=== PATIENT | female | born 1955 | race Two or more races ===

== ENCOUNTER 2021-11-17 09:00 | Outpatient (REF) | payer OTHER, SELFPAY ==
--- NOTE | 2021-11-17 08:15 | PAPFT_PTH ---
PATIENT: Nini Winslow LOC: [facility]#:[id number] AGE/SX: 66/F ROOM: RE11/17/[address]: Mildred López : 1955 BED: DIS: 11/17/2021 SPEC #: [id number] RECD: 11/17/21 15:52 STATUS: JOI LOPEZ #: [id number] MARTHA: 11/17/21 08:[address]: Mildred López DEPT: [facility] Cytology RECD BY: Lexi Koenig Tissues: 1 - CX/ENDOCX FOR PAP SMEARS Procedures: PAP THIN PREP/[facility] Screening HPV DNA PROBE Comments: [id number]
[2021-11-17 16:00] LABS: Anion Gap 8.6 mmol/L (3-11); BUN 14 mg/dL (7-18); CO2 27.4 mmol/L (21.0-32.0); CREATININE 0.7 mg/dL (0.55-1.02); Calcium 8.4 mg/dL (8.5-10.1); Calculated LDL 153 mg/dL (<100); Chloride 109 mmol/L (98-107); Cholesterol 252 mg/dL (<200); Glucose 87 mg/dL (74-106); HDL Cholesterol 72 mg/dL (40-60); Potassium 4.1 mmol/L (3.5-5.1); Sodium 145 mmol/L (136-145); Triglyceride 135 mg/dL (<150)
== END 2021-11-17 09:01 | disposition home or self-care (01) ==
LOC: NCHCN 09:00
PROVIDERS: Visit Provider Nurse Practitioner Family
DX: Z00.00 Encounter for general adult medical examination without abnormal findings (principal); Z13.220 Encounter for screening for lipoid disorders; Z12.4 Encounter for screening for malignant neoplasm of cervix; Z11.51 Encounter for screening for human papillomavirus (HPV)
CPT/HCPCS: 80048; 80061; 88142; 87624

== ENCOUNTER 2021-11-24 15:34 | Outpatient (REF) | payer OTHER, SELFPAY ==
[2021-11-24 16:59] LABS: Albumin 4.2 g/dL (3.4-5.0); Calcium 8.9 mg/dL (8.5-10.1)
[2021-11-24 17:03] LABS: Vitamin D 25 Total 9.1 ng/mL (30-100)
== END 2021-11-24 15:35 | disposition home or self-care (01) ==
LOC: NCHCN 15:34
PROVIDERS: Visit Provider Nurse Practitioner Family
DX: R63.4 Abnormal weight loss (principal); M85.80 Other specified disorders of bone density and structure, unspecified site; Z78.0 Asymptomatic menopausal state
CPT/HCPCS: 82306; 82040; 82310

== ENCOUNTER 2022-01-30 20:42 | Outpatient (REF) | payer OTHER, SELFPAY ==
[2022-01-30 22:03] LABS: Vitamin D 25 Total 57.3 ng/mL (30-100)
== END 2022-01-30 20:43 | disposition home or self-care (01) ==
LOC: NCHCN 20:42
PROVIDERS: Visit Provider Nurse Practitioner Family
DX: E55.9 Vitamin D deficiency, unspecified (principal)
CPT/HCPCS: 82306

== ENCOUNTER 2024-01-11 11:38 | Outpatient (REF) | payer MEDICARE, SELFPAY | END 2024-01-11 11:39 | disposition home or self-care (01) | LOC: NCHCN 11:38 | PROVIDERS: PCP Nurse Practitioner Family; Visit Provider Nurse Practitioner Family | DX: R30.0 Dysuria (principal) | CPT/HCPCS: 87077; 87086; 87186 ==

== ENCOUNTER 2024-05-11 10:03 | Outpatient (REF) | payer MEDICARE, SELFPAY ==
[2024-05-11 15:34] LABS: HCT 39.6 % (36.0-46.0); HGB 12.8 g/dL (11.2-15.7); MCHC 32.3 % (32.0-36.0); MCV 99 fL (80-95); MPV 10.5 fL (8.0-11.0); Platelet Count 271 10^3/uL (130-400); RDW 12.6 % (11.7-14.6); RDW-SD 45.5 fL; WBC 4.22 10^3/uL (4.4-10.8)
[2024-05-11 16:18] LABS: Anion Gap 5.3 mmol/L (3-11); BUN 15 mg/dL (7-18); CO2 30.7 mmol/L (21.0-32.0); CREATININE 0.8 mg/dL (0.55-1.02); Calcium 9.1 mg/dL (8.5-10.1); Calculated LDL 155 mg/dL (<100); Chloride 106 mmol/L (98-107); Cholesterol 258 mg/dL (<200); Estimated GFR 80.71 (mL/min/1.73m2); Glucose 83 mg/dL (74-106); HDL Cholesterol 85 mg/dL (40-60); Potassium 4.4 mmol/L (3.5-5.1); Sodium 142 mmol/L (136-145); Triglyceride 92 mg/dL (<150); Vitamin D 25 Total 38.6 ng/mL (30-100)
== END 2024-05-11 10:04 | disposition home or self-care (01) ==
LOC: NCHCN 10:03
PROVIDERS: PCP Nurse Practitioner Family; Visit Provider Family Medicine
DX: R53.83 Other fatigue (principal); E55.9 Vitamin D deficiency, unspecified
CPT/HCPCS: 80048; 80061; 82306; 85027